=== PATIENT | male | born 1965 | race Caucasian/White ===

== ENCOUNTER 2016-11-14 11:43 | Emergency (ER) | payer OTHER ==
[~2016-11-14] VITALS: Ht 172.7 cm; Wt 75.3 kg
[~2016-11-14 11:43] MED LIST: BUSPIRONE HCL15 MG PO; FLEXERIL10 MG PO; HYDROCODONE BIT1 T12 PO; TYLENOL WITH CO1 TA3 PO
[2016-11-14 13:59] VITALS: BP 128/79
== END 2016-11-14 14:13 | disposition home or self-care (01) ==
LOC: ED 11:43
DX: G89.29 Other chronic pain (principal); R07.89 Other chest pain; M54.2 Cervicalgia; M54.9 Dorsalgia, unspecified; F32.9 Major depressive disorder, single episode, unspecified; R03.0 Elevated blood-pressure reading, without diagnosis of hypertension
CPT/HCPCS: J1885; J2001

== ENCOUNTER 2017-05-28 08:21 | Emergency (ER) | payer OTHER ==
[~2017-05-28] VITALS: Ht 172.7 cm; Wt 74.8 kg
[2017-05-28 08:25] VITALS: Ht 172.7 cm; Wt 74.8 kg
[2017-05-28 09:03] LABS: BASOPHIL % 0.3 % (0-2); PLATELET COUNT 279 x10^3mcL (130-400); RED CELL DISTRIBUTION WIDTH 13.1 % (11.5-14.5)
[2017-05-28 09:17] LABS: CALCIUM 8.9 mg/dL (8.5-10.1); CARBON DIOXIDE 28.3 mmol/L (21-32); CHLORIDE SERUM 100 mmol/L (98-107); GFR1 > 60 mL/min; GLUCOSE SERUM 122 mg/dL (74-106); POTASSIUM SERUM 4.1 mmol/L (3.5-5.1); SODIUM SERUM 137 mmol/L (136-145)
[2017-05-28 09:21] LABS: ALBUMIN 3.9 g/dL (3.4-5.0); ALKALINE PHOSPHATASE 62 U/L (46-116); ALT/SGPT 8 U/L (16-63); AMYLASE 55 U/L (25-115); AST/SGOT 12 U/L (15-37); BILIRUBIN TOTAL 1.03 mg/dL (0.20-1.00); LIPASE 89 IU/L (73-393); TOTAL PROTEIN, SERUM 7.6 g/dL (6.4-8.2)
[2017-05-28 09:55] LABS: microscopic required? NO
[2017-05-28 10:30] LABS: urine erythrocyte NEGATIVE (NEGATIVE)
[2017-05-28 10:41] LABS: AMPHETAMINE QUAL UR NONE DETECTED (NEG <=1000)
[2017-05-28 12:10] VITALS: BP 115/75
== END 2017-05-28 12:10 | disposition home or self-care (01) ==
LOC: ED 08:21
PROVIDERS: Emergency Medicine
DX: G89.29 Other chronic pain (principal); R07.9 Chest pain, unspecified; F32.9 Major depressive disorder, single episode, unspecified
CPT/HCPCS: 85378; G0480; J1100; J1885; Q0092

== ENCOUNTER 2017-05-30 08:25 | Inpatient (IN) | payer OTHER ==
[~2017-05-30] VITALS: Ht 172.7 cm; Wt 77.6 kg
[2017-05-30 10:03] LABS: CALCIUM 8.3 mg/dL (8.5-10.1); CARBON DIOXIDE 22.2 mmol/L (21-32); CREATININE SERUM 1.5 mg/dL (0.7-1.3); POTASSIUM SERUM 4.1 mmol/L (3.5-5.1)
[2017-05-30 10:10] LABS: ALBUMIN 3.2 g/dL (3.4-5.0); BILIRUBIN TOTAL 1.5 mg/dL (0.20-1.00); TOTAL PROTEIN, SERUM 7.4 g/dL (6.4-8.2)
[2017-05-30 10:17] LABS: PLATELET COUNT 244 x10^3mcL (130-400); RED CELL DISTRIBUTION WIDTH 13.9 % (11.5-14.5)
[2017-05-30] MEDS ORDERED: NOR10T PO (10:32)
[2017-05-30] MEDS ORDERED: RESTORIL30 MG PO (10:33)
[2017-05-30 11:01] LABS: BAND NEUTROPHIL 49 % (0-10); BASOPHIL 0 % (0-2); MONOCYTE 5 % (0-7); SEGMENTED NEUTROPHILS 41 % (37-75)
[2017-05-30 11:03] LABS: PLATELET MORPHOLOGY PLATELETS NORMAL
[2017-05-30] MEDS ORDERED: TRAMADOL HCL50 MG PO (11:46)
[2017-05-30 13:29] VITALS: BP 99/61
[2017-05-30 14:59] LABS: FREE T4 1.18 ng/dL (0.76-1.46); FREE THYROXINE INDEX 2.5 ug/dL (1.4-4.5); T4(THYROXINE) 6.4 ug/dL (4.7-13.3)
[2017-05-30 15:34] LABS: MAGNESIUM 1.7 mg/dL (1.8-2.4)
[2017-05-30 15:39] LABS: CHOLESTEROL/HDL RATIO 2.2
[2017-05-30 17:21] VITALS: BP 103/77
[2017-05-30 19:10] VITALS: BP 118/72
[2017-05-30 22:23] LABS: UA SPECIFIC GRAVITY >=1.030 (1.005-1.035); microscopic required? YES; urine erythrocyte 2+ (NEGATIVE)
[2017-05-30 22:48] LABS: AMPHETAMINE QUAL UR NONE DETECTED (NEG <=1000)
[2017-05-30 23:30] VITALS: BP 88/55
[2017-05-31 03:23] LABS: T3 TOTAL 0.41 ng/mL
[2017-05-31 03:30] VITALS: BP 102/69
[2017-05-31 05:13] LABS: BASOPHIL % 0.1 % (0-2); PLATELET COUNT 201 x10^3mcL (130-400); RED CELL DISTRIBUTION WIDTH 14.4 % (11.5-14.5)
[2017-05-31 05:14] VITALS: Ht 172.7 cm; Wt 77.6 kg
[2017-05-31 05:24] LABS: CALCIUM 7.3 mg/dL (8.5-10.1); CARBON DIOXIDE 24.8 mmol/L (21-32); CHLORIDE SERUM 109 mmol/L (98-107); GFR1 > 60 mL/min; GLUCOSE SERUM 198 mg/dL (74-106); MAGNESIUM 1.7 mg/dL (1.8-2.4); PHOSPHOROUS 2.6 mg/dL (2.5-4.9); POTASSIUM SERUM 4.2 mmol/L (3.5-5.1); SODIUM SERUM 141 mmol/L (136-145)
[2017-05-31 08:00] VITALS: BP 110/74
[2017-05-31 12:00] VITALS: BP 99/61
[2017-05-31 17:52] VITALS: BP 131/79
[2017-05-31 21:23] VITALS: BP 113/66
[2017-06-01 05:38] VITALS: BP 127/80
[2017-06-01 07:45] LABS: CALCIUM 7.8 mg/dL (8.5-10.1); CARBON DIOXIDE 26.1 mmol/L (21-32); CHLORIDE SERUM 108 mmol/L (98-107); CREATININE SERUM 0.8 mg/dL (0.7-1.3); GFR1 > 60 mL/min; GLUCOSE SERUM 114 mg/dL (74-106); MAGNESIUM 2.5 mg/dL (1.8-2.4); POTASSIUM SERUM 3.7 mmol/L (3.5-5.1); SODIUM SERUM 142 mmol/L (136-145)
[2017-06-01 07:56] LABS: BASOPHIL % 0.1 % (0-2); PLATELET COUNT 207 x10^3mcL (130-400); RED CELL DISTRIBUTION WIDTH 14.9 % (11.5-14.5)
[2017-06-01 09:32] VITALS: BP 139/94
[2017-06-01 14:01] VITALS: BP 143/97
[2017-06-01 21:35] VITALS: BP 166/94
[2017-06-02 04:55] VITALS: BP 150/98
[2017-06-02 07:22] LABS: CALCIUM 8.2 mg/dL (8.5-10.1); CARBON DIOXIDE 27.4 mmol/L (21-32); CHLORIDE SERUM 107 mmol/L (98-107); CREATININE SERUM 0.7 mg/dL (0.7-1.3); GFR1 > 60 mL/min; GLUCOSE SERUM 88 mg/dL (74-106); MAGNESIUM 1.9 mg/dL (1.8-2.4); PHOSPHOROUS 3.4 mg/dL (2.5-4.9); POTASSIUM SERUM 3.5 mmol/L (3.5-5.1); SODIUM SERUM 141 mmol/L (136-145)
[2017-06-02 09:02] LABS: BASOPHIL % 0.3 % (0-2); PLATELET COUNT 235 x10^3mcL (130-400); RED CELL DISTRIBUTION WIDTH 14.4 % (11.5-14.5)
[2017-06-02 10:19] VITALS: BP 154/91
[2017-06-02 16:24] VITALS: BP 147/93
[2017-06-02 21:30] VITALS: BP 161/102
[2017-06-03 06:09] VITALS: BP 171/102
[2017-06-03 07:39] LABS: BASOPHIL % 0.2 % (0-2); PLATELET COUNT 257 x10^3mcL (130-400); RED CELL DISTRIBUTION WIDTH 13.9 % (11.5-14.5)
[2017-06-03 08:09] LABS: CALCIUM 7.6 mg/dL (8.5-10.1); CARBON DIOXIDE 26.9 mmol/L (21-32); CHLORIDE SERUM 105 mmol/L (98-107); CREATININE SERUM 0.6 mg/dL (0.7-1.3); GFR1 > 60 mL/min; GLUCOSE SERUM 158 mg/dL (74-106); MAGNESIUM 1.8 mg/dL (1.8-2.4); PHOSPHOROUS 3.1 mg/dL (2.5-4.9); POTASSIUM SERUM 3.4 mmol/L (3.5-5.1); SODIUM SERUM 139 mmol/L (136-145)
[2017-06-03 09:00] VITALS: BP 152/103
[2017-06-03 10:00] VITALS: BP 169/103
[2017-06-03 17:24] VITALS: BP 154/99
[2017-06-03 21:45] VITALS: BP 163/97
[2017-06-04 05:15] VITALS: BP 164/100
[2017-06-04 10:05] VITALS: BP 151/92
[2017-06-04 13:04] LABS: BASOPHIL % 0.3 % (0-2); PLATELET COUNT 297 x10^3mcL (130-400); RED CELL DISTRIBUTION WIDTH 13.9 % (11.5-14.5)
[2017-06-04 13:08] LABS: CALCIUM 8.1 mg/dL (8.5-10.1); CARBON DIOXIDE 30.4 mmol/L (21-32); CHLORIDE SERUM 105 mmol/L (98-107); CREATININE SERUM 0.6 mg/dL (0.7-1.3); GFR1 > 60 mL/min; GLUCOSE SERUM 109 mg/dL (74-106); MAGNESIUM 2.1 mg/dL (1.8-2.4); PHOSPHOROUS 2.8 mg/dL (2.5-4.9); POTASSIUM SERUM 4.5 mmol/L (3.5-5.1); SODIUM SERUM 140 mmol/L (136-145)
[2017-06-04 21:12] VITALS: BP 134/87
[2017-06-05 05:46] VITALS: BP 125/83
[2017-06-05 07:20] LABS: BASOPHIL % 0.2 % (0-2); PLATELET COUNT 315 x10^3mcL (130-400); RED CELL DISTRIBUTION WIDTH 13.8 % (11.5-14.5)
[2017-06-05 07:47] LABS: CALCIUM 7.9 mg/dL (8.5-10.1); CARBON DIOXIDE 27.1 mmol/L (21-32); CHLORIDE SERUM 103 mmol/L (98-107); CREATININE SERUM 0.7 mg/dL (0.7-1.3); GFR1 > 60 mL/min; GLUCOSE SERUM 173 mg/dL (74-106); MAGNESIUM 2.1 mg/dL (1.8-2.4); PHOSPHOROUS 3.4 mg/dL (2.5-4.9); POTASSIUM SERUM 3.8 mmol/L (3.5-5.1); SODIUM SERUM 136 mmol/L (136-145)
[2017-06-05 09:41] VITALS: BP 139/88
[2017-06-05 16:39] VITALS: BP 140/89
[2017-06-05 22:07] VITALS: BP 115/71
[2017-06-06 05:49] VITALS: BP 118/77
[2017-06-06 06:28] LABS: BASOPHIL % 0.3 % (0-2); PLATELET COUNT 371 x10^3mcL (130-400); RED CELL DISTRIBUTION WIDTH 13.8 % (11.5-14.5)
[2017-06-06 07:06] LABS: CALCIUM 7.6 mg/dL (8.5-10.1); CARBON DIOXIDE 28.2 mmol/L (21-32); CHLORIDE SERUM 104 mmol/L (98-107); CREATININE SERUM 0.8 mg/dL (0.7-1.3); GFR1 > 60 mL/min; GLUCOSE SERUM 97 mg/dL (74-106); MAGNESIUM 1.9 mg/dL (1.8-2.4); PHOSPHOROUS 2.5 mg/dL (2.5-4.9); SODIUM SERUM 137 mmol/L (136-145)
[2017-06-06 09:44] VITALS: BP 108/79
[2017-06-06 10:14] VITALS: BP 117/76
[2017-06-06 16:51] VITALS: BP 126/74
[2017-06-06 21:47] VITALS: BP 119/77
[2017-06-07 05:59] VITALS: BP 129/78
[2017-06-07 06:57] LABS: BASOPHIL % 0.1 % (0-2); PLATELET COUNT 369 x10^3mcL (130-400); RED CELL DISTRIBUTION WIDTH 13.6 % (11.5-14.5)
[2017-06-07 07:37] LABS: CALCIUM 8.1 mg/dL (8.5-10.1); CHLORIDE SERUM 103 mmol/L (98-107); CREATININE SERUM 0.8 mg/dL (0.7-1.3); GFR1 > 60 mL/min; GLUCOSE SERUM 94 mg/dL (74-106); MAGNESIUM 2.3 mg/dL (1.8-2.4); PHOSPHOROUS 2.8 mg/dL (2.5-4.9); POTASSIUM SERUM 3.8 mmol/L (3.5-5.1); SODIUM SERUM 132 mmol/L (136-145)
[2017-06-07 10:30] VITALS: BP 126/80
[2017-06-07] MEDS ORDERED: METOPROLOL TART25 M1 NG (12:36)
[2017-06-07] MEDS ORDERED: LAC PO (12:37)
[2017-06-07] MEDS ORDERED: CIPROFLOXACIN500 MG PO (12:39)
[2017-06-07] MEDS ORDERED: COLACE100 MG PO (12:41)
[2017-06-07] MEDS ORDERED: FLA500 PO (12:44)
[2017-06-07] MEDS ORDERED: APAP/HYDROCODON1 T11 PO (12:45)
[2017-06-07 14:03] VITALS: BP 126/80
== END 2017-06-07 15:11 | disposition home or self-care (01) | DRG 710 ==
LOC: ED 08:25 → MU 10:43 → DU 10:43 → IC 16:58 → DU 05-31 17:07 → MU 06-01 06:23
PROVIDERS: Emergency Medicine; Family Medicine; Family Medicine Addiction Medicine; Family Medicine Sports Medicine; Student in an Organized Health Care Education/Training Program
PROC: 0DNW0ZZ Release Peritoneum, Open Approach (ICD-10-PCS; 2017-05-30)
PROC: 0DTJ0ZZ Resection of Appendix, Open Approach (ICD-10-PCS; 2017-05-30)
PROC: 0DBN0ZZ Excision of Sigmoid Colon, Open Approach (ICD-10-PCS; principal; 2017-05-30 12:45)
PROC: 05HM33Z Insertion of Infusion Device into Right Internal Jugular Vein, Percutaneous Approach (ICD-10-PCS; 2017-06-02)
DX: A41.9 Sepsis, unspecified organism (principal); N17.0 Acute kidney failure with tubular necrosis; J90 Pleural effusion, not elsewhere classified; K35.2 Acute appendicitis with generalized peritonitis; E44.0 Moderate protein-calorie malnutrition; K57.00 Diverticulitis of small intestine with perforation and abscess without bleeding; E83.42 Hypomagnesemia; I42.2 Other hypertrophic cardiomyopathy; E83.51 Hypocalcemia; I08.1 Rheumatic disorders of both mitral and tricuspid valves; K66.0 Peritoneal adhesions (postprocedural) (postinfection); R65.20 Severe sepsis without septic shock; B96.20 Unspecified Escherichia coli [E. coli] as the cause of diseases classified elsewhere; R73.03 Prediabetes; K59.00 Constipation, unspecified; Z68.25 Body mass index [BMI] 25.0-25.9, adult; Z79.891 Long term (current) use of opiate analgesic; Z16.24 Resistance to multiple antibiotics
CPT/HCPCS: 82962; 83880; 84439; 97110-GP; 97116-GP; 97530-GP; J0330; J0780; J1170; J1642; J1815; J1885; J2001; J2250; J2270; J2405; J2543; J2704; J2710; J3010; J3475; J3490; J7030; J7120; J7131; Q0092; Q9966; Q9967

== ENCOUNTER 2017-07-30 12:17 | Emergency (ER) | payer OTHER ==
[~2017-07-30] VITALS: Ht 172.7 cm; Wt 76.2 kg
[~2017-07-30 12:17] MED LIST changes: +APAP/HYDROCODON1 T11 PO; +CIPROFLOXACIN500 MG PO; +COLACE100 MG PO; +FLA500 PO; +LAC PO; +METOPROLOL TART25 M1 NG; +NOR10T PO; +RESTORIL30 MG PO; +TRAMADOL HCL50 MG PO
[2017-07-30 12:20] VITALS: Ht 172.7 cm; Wt 76.2 kg
[2017-07-30 13:47] VITALS: BP 119/86
== END 2017-07-30 13:47 | disposition home or self-care (01) ==
LOC: ED 12:17
DX: G89.18 Other acute postprocedural pain (principal); R10.9 Unspecified abdominal pain
CPT/HCPCS: Q0092